=== PATIENT | female | born 1995 ===

== ENCOUNTER 2017-07-23 21:52 | Inpatient (IN) | payer OTHER ==
--- NOTE | 2017-07-23 22:30 | C.PDOC ---
History Of Present Illness Patient presents to the ER with a complaint of sharp/stabbing mid epigastric pain, nausea, and vomiting since yesterday. Patient is currently speaking in complete sentences; denies fever or chills. Time Seen by Provider: 07/23/17 22:30 Chief Complaint (Nursing): Abdominal Pain History Per: Patient History/Exam Limitations: no limitations Onset/Duration Of Symptoms: Days Current Symptoms Are (Timing): Still Present Severity: Moderate Pain Scale Rating Of: 5 Location Of Pain/Discomfort: Epigastric Radiation Of Pain To:: None Quality Of Discomfort: Sharp, Stabbing Associated Symptoms: Nausea, Vomiting. denies: Fever, Chills Exacerbating Factors: None Alleviating Factors: None Recent travel outside of the [place]: No Additional History Per: Family Abnormal Vaginal Bleeding: No Past Medical History Reviewed: Historical Data, Nursing Documentation, Vital Signs Vital Signs: Last Vital Signs Temp 99.3 F 07/23/17 22:12 Pulse 128 H 07/23/17 22:12 Resp 18 07/23/17 22:12 BP Pulse Ox 100 07/23/17 23:05 - Medical History PMH: No Chronic Diseases Surgical History: No Surg Hx Family History: States: No Known Family Hx - Social History Hx Alcohol Use: No Hx Substance Use: No - Immunization History Hx Influenza Vaccination: No Review Of Systems Constitutional: Negative for: Fever, Chills Eyes: Negative for: Redness Cardiovascular: Negative for: Chest Pain Respiratory: Negative for: Shortness of Breath Gastrointestinal: Positive for: Nausea, Vomiting, Abdominal Pain Genitourinary: Negative for: Dysuria Musculoskeletal: Negative for: Back Pain Skin: Negative for: Rash Neurological: Negative for: Weakness Psych: Negative for: Anxiety Physical Exam - Physical Exam Appears: Non-toxic Skin: Warm, Dry Head: Normacephalic Eye(s): bilateral: Normal Inspection Oral Mucosa: Moist Neck: Trachea Midline, Supple Chest: Symmetrical, No Tenderness Cardiovascular: Rhythm Regular Respiratory: No Rales, No Rhonchi, No Wheezing Gastrointestinal/Abdominal: Soft, Tenderness (Mid epigastric) Back: No CVA Tenderness Extremity: Normal ROM Extremity: Bilateral: Atraumatic, Normal Color And Temperature, Normal ROM Pulses: Left Dorsalis Pedis: Normal, Right Dorsalis Pedis: Normal Neurological/Psych: Oriented x3, Normal Speech, Normal Cognition Gait: Steady ED Course And Treatment - Laboratory Results Result Diagrams: 07/23/17 23:16 07/23/17 23:16 ECG: Interpreted By Me, Viewed By Me ECG Rhythm: Sinus Tachycardia (122), Nonspecific Changes O2 Sat by Pulse Oximetry: 100 Pulse Ox Interpretation: Normal Progress Note: Blood work and urinalysis ordered. Morphine, pepcid, IV fluids, and zofran administered. Disposition Discussed With Dr.: Scott Delgado Comment: accepted the pt on his service and took over the care at 2:57 AM Doctor Will See Patient In The: Hospital Counseled Patient/Family Regarding: Studies Performed, Diagnosis - Disposition Referrals: Non [facility] Provider, [Primary Care Provider] - Disposition: HOSPITALIZED Disposition Time: 22:30 Condition: FAIR Forms: [facility] (Lao) - POA Present On Arrival: None - Clinical Impression Clinical Impression: Abdominal pain, Acute appendicitis - Scribe Statement The provider has reviewed the documentation as recorded by the Scribe Brandt Angeles All medical record entries made by the Scribe were at my direction and personally dictated by me. I have reviewed the chart and agree that the record accurately reflects my personal performance of the history, physical exam, medical decision making, and the department course for this patient. I have also personally directed, reviewed, and agree with the discharge instructions and disposition. Decision To Admit - Pt Status Changed To: Hospital Disposition Of: Inpatient - Admit Certification Admit to Inpatient:: After my assessment, the patient will require hospitalization for at least two midnights. This is because of the severity of symptoms shown, intensity of services needed, and/or the medical risk in this patient being treated as an outpatient. - InPatient: Physician Admission Certification:: After my assessment, the patient will require hospitalization for at least two midnights. This is because of the severity of symptoms shown, intensity of services needed, and/or the medical risk in this patient being treated as an outpatient. - . Bed Request Type: Regular Admitting Physician: Scott Delgado Patient Diagnosis: Abdominal pain, Acute appendicitis
[2017-07-23] MEDS ORDERED: Sodium Chloride 0.9% 1,000 ML IV ONE (22:33)
[2017-07-23] MEDS ORDERED: Sodium Chloride 0.9% 1,000 ML ONE (22:50)
[2017-07-23 23:03] LABS: VENOUS BLOOD GAS BASE EXCESS 1.9 mmol/L (0.0-2.0); VENOUS BLOOD GAS PCO2 41 mmHg (40-60); VENOUS BLOOD PH 7.42 (7.32-7.43)
[2017-07-23 23:19] LABS: BASO # 0.1 K/uL (0.0-0.2); BASO % 0.3 % (0.0-2.0); EOS # 0.2 K/uL (0.0-0.7); EOS % 0.7 % (0.0-4.0); HEMATOCRIT 39.6 % (34.0-47.0); LYMPH # 1.8 K/uL (1.0-4.3); LYMPH % 7.2 % (20.0-40.0); MEAN CELL VOLUME 88.8 fL (81.0-99.0); MEAN CORPUSCULAR HEMOGLOBIN 30.5 pg (27.0-31.0); MEAN CORPUSCULAR HGB CONC 34.4 g/dL (33.0-37.0); MONO # 2.1 K/uL (0.0-0.8); MONO % 8.2 % (0.0-10.0); PLATELET COUNT 315 K/uL (130-400); RED CELL DISTRIBUTION WIDTH 12.9 % (11.5-14.5); WHITE BLOOD COUNT 25.5 K/uL (4.8-10.8)
[2017-07-23 23:28] LABS: CHLORIDE 100 mmol/L (98-107); SODIUM 137 mmol/L (132-148)
[2017-07-23 23:29] LABS: INR 1.1
[2017-07-23 23:30] LABS: GFR AFRICAN-AMERICAN > 60
[2017-07-23 23:31] LABS: ALB/GLOB RATIO 1.4 (1.0-2.1); ALKALINE PHOSPHATASE 77 U/L (38-126); ALT/SGPT 27 U/L (9-52); AST/SGOT 23 U/L (14-36); BILIRUBIN,TOTAL 0.7 mg/dL (0.2-1.3); BLOOD UREA NITROGEN 10 mg/dL (7-17); CALCIUM 10.1 mg/dl (8.6-10.4); CARBON DIOXIDE 23 mmol/L (22-30); GLUCOSE,RANDOM 104 mg/dL (65-105)
[2017-07-23] MEDS ORDERED: Piperacillin/Tazobact 3.375 gm 100 ML IVPB STA (23:41)
[2017-07-24] MEDS ORDERED: Piperacillin/Tazobact 3.375 gm 100 ML IVPB ONE ×2 (00:02→00:23)
[2017-07-24 00:38] LABS: RBC URINE 2 /hpf (0-3); URINE BACTERIA FEW (<OCC); URINE BILIRUBIN NEGATIVE (NEGATIVE); URINE COLOR Straw (YELLOW); URINE GLUCOSE (UA) NORMAL (Normal); URINE KETONE NEGATIVE (NEGATIVE); URINE LEUKOCYTE ESTERASE 1+ Leu/uL (Negative); URINE PROTEIN NEGATIVE (NEGATIVE); URINE UROBILINOGEN NORMAL mg/dL (0.2-1.0); WBC URINE 2 /hpf (0-5)
[2017-07-24 00:41] LABS: URINE BLOOD TRACE (NEGATIVE)
[2017-07-24 00:51] LABS: NEUTROPHIL 85 % (50-75); TOTAL CELLS COUNTED 100
[2017-07-24] MEDS ORDERED: Iodixanol 320 mg/ml 150 ml Bottle IV ONE (01:29)
--- NOTE | 2017-07-24 02:12 | CT ---
EXAM: CT Abdomen and Pelvis With Intravenous Contrast CLINICAL HISTORY: 22 years old, female; Pain; Abdominal pain; Additional info: Diffuse abd pain, high wbc count TECHNIQUE: Axial computed tomography images of the abdomen and pelvis with intravenous contrast. All CT scans at this facility use one or more dose reduction techniques, viz.: automated exposure control; ma/kV adjustment per patient size (including targeted exams where dose is matched to indication; i.e. head); or iterative reconstruction technique. Coronal and sagittal reformatted images were created and reviewed. CONTRAST: 100 mL of [id number] administered intravenously. COMPARISON: No relevant prior studies available. FINDINGS: Lower thorax: The bilateral lung bases are clear. ABDOMEN: Liver: No acute findings. Gallbladder and bile ducts: The gallbladder is minimally distended, without calcified stones. No significant intra- or extrahepatic biliary ductal dilation. Pancreas: Enhances homogeneously. No ductal dilation. No discrete mass. Spleen: No acute findings. Adrenals: No acute findings. Kidneys and ureters: No acute findings. No hydronephrosis or renal calculi. No discrete solid mass. PELVIS: Bladder: No acute findings. Reproductive: Involuting cyst within the right ovary with surrounding free fluid. This cyst measures 2.5 cm in greatest dimension. Appendix: The appendix is distended and fluid-filled measuring 10 mm in medial to lateral dimension. A single calcification is identified within the proximal appendix, likely an appendicolith. Multiple lymph nodes are identified within the mesentery of the right lower quadrant. ABDOMEN and PELVIS: Stomach and bowel: No obstruction. No mucosal thickening. Peritoneum: As above. Lymph nodes: As above. Vasculature: Unremarkable. Bones: No acute fracture. IMPRESSION: Findings which in the appropriate clinical scenario suggests the presence of acute appendicitis. No perforation. No drainable fluid collection. Involuting cyst within the right ovary.
[2017-07-24] MEDS ORDERED: Sodium Chloride 0.9% 1,000 ML IV ONE ×2 (03:04)
[2017-07-24] MEDS ORDERED: Sodium Chloride 0.9% 1,000 ML ONE (03:10)
[2017-07-24] MEDS: Piperacill/Tazo 3.375gm in Dex 3.375 GM/50 ML BAG IVPB SCH ×2 (09:02→16:20)
[2017-07-24] MEDS ORDERED: Lactated Ringer's 1,000 ML IV ONE ×2 (14:45→16:40)
[2017-07-24] MEDS ORDERED: Midazolam 2 MG/2 ML VIAL ONE (14:45)
[2017-07-24] MEDS ORDERED: Propofol 10 mg/ml Inj (20 ML) ONE (14:45)
[2017-07-24] MEDS ORDERED: Succinylcholine Chloride 20 mg/ml Syr (5 ml) IV ONE (14:47)
--- NOTE | 2017-07-24 15:05 | CARD ---
APPROVED REPORT EKG Measurement Heart [id number] <Conclusion> Sinus tachycardia Possible Left atrial enlargement Borderline ECG
[2017-07-24] MEDS ORDERED: Bupivacaine HCl 0.25% PF (10 ml) Inj ONE (15:31)
[2017-07-24] MEDS ORDERED: HYDROmorphone 0.5 mg/0.5 ml ISec IVP PRN ×2 (15:46→21:30)
--- NOTE | 2017-07-24 23:50 | OP ---
PROCEDURE DATE: 07/24/2017 PREOPERATIVE DIAGNOSIS: Acute appendicitis. POSTOPERATIVE DIAGNOSIS: Acute appendicitis. PROCEDURE PERFORMED: Appendectomy. SURGEON: Dr. Delgado. TYPE OF ANESTHESIA: General. ESTIMATED BLOOD LOSS: 20 mL POSTOPERATIVE CONDITION: Stable. INDICATIONS FOR SURGERY: This is a 22-year-old female who presents with acute appendicitis, taken to the OR for appendectomy procedure. DESCRIPTION OF PROCEDURE: The patient was taken to the OR and general anesthesia was administered. The abdomen was prepped and draped. A small miniature right lower quadrant incision was made, muscle splitting and the abdomen was entered. The appendix was mobilized into the wound and the mesoappendix was divided between clamps using Vicryl ties. Small serosal tear of the ileocecal valve was repaired with silk. The base of the appendix was divided with a TA 30 stapler and the arm was irrigated with saline. The abdomen was closed in layers with a running 0 Vicryl suture. The subcuticular suture of 3-0 Monocryl was placed in an interrupted fashion. The patient tolerated the procedure well and returned to recovery room in stable condition. Scott eDlgado MD
[2017-07-25] MEDS: Piperacill/Tazo 3.375gm in Dex 3.375 GM/50 ML BAG IVPB SCH ×3 (00:45→17:00)
[2017-07-25 07:46] VITALS: TEMP 98.3
[2017-07-25 16:56] VITALS: BP 119/76; PULSE 110; RESP 18; O2SAT 99
== END 2017-07-25 19:05 | disposition home or self-care (01) | DRG 167 ==
LOC: C.ER 21:52 → SUPCPDRO 21:52 → C.9E 07-24 02:56 → C.6T 07-24 16:59
PROVIDERS: ADMIT Surgery; ATTEND Surgery
PROC: 0DTJ0ZZ Resection of Appendix, Open Approach (ICD-10-PCS; principal; 2017-07-24 19:45)
DX: K35.80 Unspecified acute appendicitis (principal)

== ENCOUNTER 2018-06-08 07:50 | Emergency (ER) | payer OTHER ==
[2018-06-08] MEDS ORDERED: Sodium Chloride 0.9% 1,000 ML IV ONE ×2 (08:08→09:11)
[2018-06-08] MEDS ORDERED: Sodium Chloride 0.9% 1,000 ML ONE (08:16)
--- NOTE | 2018-06-08 08:17 | C.PDOC ---
History Of Present Illness 23 year old female presents to the ED complaining of upper and left sided abdominal pain that radiates to her left upper back starting at 0300 this morning. She reports loss of appetite. Patient denies any vomitig, diarrhea, constipation, urinary symptoms, cold/flu symptoms. She denies taking any medication for the pain prior to arrival. Time Seen by Provider: 06/08/18 08:03 Chief Complaint (Nursing): Abdominal Pain History Per: Patient History/Exam Limitations: no limitations Onset/Duration Of Symptoms: Days Current Symptoms Are (Timing): Still Present Severity: Moderate Location Of Pain/Discomfort: Epigastric, LUQ Radiation Of Pain To:: Flank Quality Of Discomfort: "Pain" Associated Symptoms: Fever, Loss Of Appetite Last Bowel Movement: Yesterday Abnormal Vaginal Bleeding: No Last Menstral Period: Ended 06/07/18 Past Medical History Reviewed: Historical Data, Nursing Documentation, Vital Signs Vital Signs: Last Vital Signs Temp 100.1 F H 06/08/18 09:48 Pulse 115 H 06/08/18 09:48 Resp 18 06/08/18 09:48 BP 110/68 06/08/18 09:48 Pulse Ox 99 06/08/18 10:19 - Medical History PMH: No Chronic Diseases Surgical History: Appendectomy - [facility] RESECTION OF APPENDIX, OPEN APPROACH (07/24/17) Family History: States: No Known Family Hx - Social History Hx Alcohol Use: No Hx Substance Use: No - Immunization History Hx Influenza Vaccination: No Review Of Systems Constitutional: Negative for: Fever, Chills Gastrointestinal: Positive for: Abdominal Pain. Negative for: Nausea, Vomiting , Diarrhea, Constipation Genitourinary: Negative for: Dysuria, Frequency, Hematuria Musculoskeletal: Positive for: Back Pain Neurological: Negative for: Headache, Dizziness Physical Exam - Physical Exam Appears: Non-toxic, No Acute Distress Skin: Warm, Dry, No Rash Head: Atraumatic, Normacephalic Eye(s): bilateral: Normal Inspection Nose: Normal Oral Mucosa: Moist Neck: Supple Chest: Symmetrical Cardiovascular: Rhythm Regular Respiratory: Normal Breath Sounds, No Rales, No Rhonchi, No Wheezing Gastrointestinal/Abdominal: Bowel Sounds, Soft, Tenderness (Mild tenderness to left upper quadrant and epigastrium ), No Mass, No Distention, No Guarding, No Rebound, No Hernia, No Ascites Back: Normal Inspection, CVA Tenderness (left mild), No Vertebral Tenderness, No Paraspinal Tenderness Extremity: Bilateral: Atraumatic, Normal Color And Temperature, Normal ROM Neurological/Psych: Oriented x3, Normal Speech Gait: Steady ED Course And Treatment - Laboratory Results Result Diagrams: 06/08/18 08:27 0818 08:27 Lab Interpretation: Abnormal O2 Sat by Pulse Oximetry: 99 (RA) Pulse Ox Interpretation: Normal Medical Decision Making Medical Decision Making: Impression: Abdominal pain and flank pain Plan - Labs - Tylenol 650mg PO - Pepcid 20mg IVP - IV fluids - UA Progress: Labs reviewed shows mild leukocytosis and no electrolyte abnormality or other abnormality. Urine shows leukocytes, pyruria, and nitrates. Additional order placed for urine culture and sent to lab Patient re-evaluated and reports feeling unchanged. Discussed results and plan for IV antibiotics and continue observing in ED. Order IV Rocephin, Toradol and additional IV fluids. Patient observed in ED for few hours. On second re-eval the patient reports feeling better and clinically appears better. Her fever has reduced and vitals improved. Patient is young healthy female with no other medical problems, can treat with Cipro outpatient. Discuss the plan for discharge with oral antibiotics and patient agrees and expressed understanding. Advise return to hospital if fever persists, vomiting, worsening pain over the next 1-3 days despite antibiotics. Disposition Counseled Patient/Family Regarding: Studies Performed, Diagnosis, Need For Followup, Rx Given - Disposition Referrals: [facility] [Outside] [facility] [Outside] Disposition: HOME/ ROUTINE Disposition Time: 10:17 Condition: IMPROVED Additional Instructions: Araceli resultados muestran que tiene isai infeccin renal. Usted fue tratado con antibiticos. Debe continuar con antibiticos dos veces al da ramin isai semana. [place] Tylenol o Motrin para cualquier fiebre o dolor. Bailey un seguimiento con la clnica en 1-2 vazquez. Regrese al departamento de emergencia en cualquier momento si los sntomas persisten o empeoran, incluso fiebre persistente, vmitos, empeoramiento del dolor. Prescriptions: Ciprofloxacin [Cipro] 1 tab PO BID #14 tab Instructions: Kidney Infection (DC) Print Language: ITALIAN - POA Present On Arrival: None - Clinical Impression Clinical Impression: Pyelonephritis - PA / [employer] / Resident Statement MD/DO has reviewed & agrees with the documentation as recorded. - Scribe Statement The provider has reviewed the documentation as recorded by the Scribe Annia Gerber All medical record entries made by the Scribe were at my direction and personally dictated by me. I have reviewed the chart and agree that the record accurately reflects my personal performance of the history, physical exam, medical decision making, and the department course for this patient. I have also personally directed, reviewed, and agree with the discharge instructions and disposition.
[2018-06-08 08:42] LABS: BASO # 0.1 K/uL (0.0-0.2); BASO % 0.5 % (0.0-2.0); EOS # 0.2 K/uL (0.0-0.7); EOS % 1.2 % (0.0-4.0); HEMOGLOBIN 13.5 g/dL (11.0-16.0); LYMPH # 1.2 K/uL (1.0-4.3); LYMPH % 7.5 % (20.0-40.0); MEAN CORPUSCULAR HEMOGLOBIN 30.2 pg (27.0-31.0); MEAN CORPUSCULAR HGB CONC 34.3 g/dL (33.0-37.0); MEAN PLATELET VOLUME 7.6 fL (7.2-11.7); MONO # 0.8 K/uL (0.0-0.8); MONO % 5.2 % (0.0-10.0); NEUT # 13.1 K/uL (1.8-7.0); NEUT % 85.6 % (50.0-75.0); PLATELET COUNT 335 K/uL (130-400); RBC 4.47 Mil/uL (3.80-5.20); WHITE BLOOD COUNT 15.3 K/uL (4.8-10.8)
[2018-06-08 08:45] LABS: HCG,QUALITATIVE URINE NEGATIVE (NEGATIVE)
[2018-06-08 08:46] LABS: SQUAMOUS EPITHIAL 1 /hpf (0-5); URINE BACTERIA OCC (<OCC); URINE BILIRUBIN NEGATIVE (NEGATIVE); URINE BLOOD 1+ (NEGATIVE); URINE CLARITY Hazy (Clear); URINE COLOR Yellow (YELLOW); URINE GLUCOSE (UA) NORMAL (Normal); URINE LEUKOCYTE ESTERASE 2+ Leu/uL (Negative); URINE PROTEIN NEGATIVE (NEGATIVE); URINE UROBILINOGEN NORMAL mg/dL (0.2-1.0)
[2018-06-08 08:53] LABS: ALB/GLOB RATIO 1.3 (1.0-2.1); ALBUMIN 4.9 g/dL (3.5-5.0); ALT/SGPT 18 U/L (9-52); AST/SGOT 15 U/L (14-36); BLOOD UREA NITROGEN 9 mg/dL (7-17); CALCIUM 9.6 mg/dl (8.6-10.4); GFR AFRICAN-AMERICAN > 60; GFR NON-AFRICAN AMERICAN > 60; LIPASE 53 U/L (23-300)
[2018-06-08] MEDS ORDERED: cefTRIAXone IV 1 gm in Dextros 50 ML IV ONE (09:05)
[2018-06-08 09:11] LABS: BANDS 3 % (0-2); MONOCYTE 4 % (0-10); TOTAL CELLS COUNTED 100
[2018-06-08 09:12] LABS: EOSINOPHIL 2 % (0-4); LYMPHOCYTE 9 % (20-40); NEUTROPHIL 82 % (50-75); PLATELET ESTIMATE NORMAL (NORMAL)
[2018-06-08] MEDS ORDERED: cefTRIAXone IV 1 gm in Dextros 50 ML IVPB ONE (09:17)
[2018-06-08 09:50] VITALS: BP 110/68; PULSE 115; RESP 18; TEMP 100.1
[2018-06-08 10:19] VITALS: O2SAT 99
== END 2018-06-08 10:35 | disposition home or self-care (01) ==
LOC: C.ER 07:50
DX: N12 Tubulo-interstitial nephritis, not specified as acute or chronic (principal)
CPT/HCPCS: 80053; 81001; 83690; 84703; 85025; 87086; 87181; 96361; 96374; 96375; 99284; J0696; J1885; J7030